=== PATIENT | female | born 1990 ===

== ENCOUNTER 2024-08-23 13:04 | Emergency (ER) | payer OTHER, SELFPAY ==
[2024-08-23 13:21] VITALS: BP 132/67
[2024-08-23 14:02] VITALS: BMI 21.3
--- NOTE | 2024-08-23 14:46 | ED.GENMED ---
History of Present Illness
<Kalyani Connors PA-C - Last Filed: 08/23/24 19:38>
General
Chief Complaint: Eye Problems
Source: patient
Exam Limitations: none
Time Seen by Provider: 08/23/24 14:35
Nursing documentation reviewed up to this point in time: agreed with
History of Present Illness
History of Present Illness:
Patient is a 34-year-old female presenting to the emergency department for evaluation of left eyelid swelling. Patient states that 2 days ago she woke up with very mild pain in her left eyelid however it appeared normal at that time. Yesterday she
noticed redness of the lid prompting a visit to urgent care. Patient was started on a course of Augmentin for presumed preseptal cellulitis. However�patient has since had 3 doses of antibiotic and felt swelling, redness, and pain were worse today.
She states that her eyelid was 'crusted shut' this morning. She came to the emergency department for further evaluation.
Patient denies any associated fever, chills, headache. She denies any changes in her vision. No blurry vision, double vision, loss of vision. Patient denies any pain with movement of her eye. Patient denies any recent viral illnesses.
Past History
<Kalyani Connors PA-C - Last Filed: 08/23/24 19:38>
Past History
ED Past Medical History: Psychiatric and Other (IBS)
ED Past Surgical History: Other
Social History
Alcohol: None
Drug: None
Personal: Single
Living: with family
Employment: Student
Family History
Family History: Other
Review of Systems
<Kalyani Connors PA-C - Last Filed: 08/23/24 19:38>
Review of Systems
Allergies reviewed?: Yes
All Other Systems: ROS reviewed and negative except as documented in HPI and ROS
Phy Exam
<Kalyani Connors PA-C - Last Filed: 08/23/24 19:38>
Physical Exam
Physical Exam:
Vitals: Patient's vital signs are stable. Afebrile
General: Patient is well appearing, no acute distress. Nontoxic appearing
Skin: Warm and dry, no rashes or lesions
Head: Normocephalic, atraumatic
Eyes: Erythema and edema of left upper lid. No scleral injection bilaterally. No drainage. EOMs intact. Pupils equal round and reactive to light bilaterally no nystagmus.
Throat: Uvula midline. Protecting airway
Neck: Normal ROM, no cervical spine tenderness, no meningismus
Cardiac: Regular rate and rhythm, no murmurs.
Pulm: Normal respiratory effort, no wheezes, rales, rhonchi heard on exam.
Abdomen: No abdominal tenderness.
Extremities: No evidence of cyanosis or edema
Neuro: AAOx3. Grossly intact.
Psychiatric: Normal affect.
Course
<Kalyani Connors PA-C - Last Filed: 08/23/24 19:38>
Vital Signs
Initial and Last Documented VS:
Initial Vital Signs
Temp Pulse Resp BP Pulse Ox
98.2 F 91 18 132/67 100
08/23/24 13:21 08/23/24 13:21 08/23/24 13:21 08/23/24 13:21 08/23/24 13:21
Last Documented Vital Signs
Temp Pulse Resp BP Pulse Ox
98.2 F 91 18 132/67 100
08/23/24 13:21 08/23/24 13:21 08/23/24 13:21 08/23/24 13:21 08/23/24 13:21
<Eladia Herr MD - Last Filed: 08/23/24 15:32>
Vital Signs
Initial and Last Documented VS:
Initial Vital Signs
Temp Pulse Resp BP Pulse Ox
98.2 F 91 18 132/67 100
08/23/24 13:21 08/23/24 13:21 08/23/24 13:21 08/23/24 13:21 08/23/24 13:21
Last Documented Vital Signs
Temp Pulse Resp BP Pulse Ox
98.2 F 91 18 132/67 100
08/23/24 13:21 08/23/24 13:21 08/23/24 13:21 08/23/24 13:21 08/23/24 13:21
<Kalyani Connors PA-C - Last Filed: 08/23/24 19:38>
MDM/Problems Addressed
Differential Diagnosis Includes:
Not limited to: Preseptal cellulitis, orbital cellulitis, eyelid dermatitis, blepharitis, hordeolum, etc.
MDM/Problems Addressed:
34-year-old female presenting with persistent left upper eyelid swelling despite 24 hours of antibiotic therapy for suspected preseptal cellulitis. No fevers, chills, headache, ocular pain, or changes in vision. Patient is stable vital signs and
is afebrile on arrival. Physical exam as above. There is some erythema and edema localized to left upper eyelid. No visible stye or break to skin. Left sclera clear with no injection. No ocular discharge. No pain with extraocular movements.
Otherwise exam unremarkable. No evidence of orbital cellulitis. No indication for orbital CT at this time. No evidence of systemic infection. While there is still erythema and edema of left upper eyelid -it has only been 24 hours. Patient is on
appropriate antibiotic therapy, Augmentin. Will advise patient to complete this course. Will provide patient with prescription for Bactrim, as well to cover for MRSA if remain without any improvement after a full 48 hours on Augmentin. Advised
continued warm compresses. Very strict return precautions discussed. Patient stable for discharge home. Case seen with attending physician
Chronic conditions affecting care:
N/A
Acute Exacerbation and/or Progression of Chronic Illness:
N/A
<Kalyani Connors PA-C - Last Filed: 08/23/24 19:38>
*Pulse Oximetry
Patient hypoxic: no
*EKG
Interpreted by ED Provider?: NA
*Psych Rn Interpretation
Rate: Psych Rn- N/A
*Critical Care Note
Total Time (30-74mins, 75-104mins- exclusive of procedures): Not Applicable
ED Attending Note
<Kalyani Connors PA-C - Last Filed: 08/23/24 19:38>
-
Portions of this chart may have been created with voice recognition software.� Occasional wrong word or��sound alike� substitutions may have occurred due to the inherent limitations of voice recognition software.
<Eladia Herr MD - Last Filed: 08/23/24 15:32>
ED Attending Note
Patient seen and examined by attending physician: Yes
I performed the substantive portion of visit, reviewed & personally made and approve the management plan that is documented in note by myself or EDY.: Yes
ED Attending Note:
34-year-old female who does not wear glasses or contacts with complaints of left eyelid swelling for the last 2 to 3 days. She notices discharge as well. Went to an urgent care has taken 3 doses of Augmentin without improvement, and questionably
getting slightly worse. She is intermittently doing warm compresses. She denies fever, chills, headache, change in vision, foreign body sensation, double vision, pain with extraocular movements, or other abnormalities. She denies trauma. On
exam, there is mild redness and swelling noted of the left upper eyelid without extension inferiorly or laterally, no fluctuance, no obvious abscess or stye, EOMI intact, no photophobia. Patient instructed continue Augmentin, close follow-up,
discussed with her signs and symptoms of septal cellulitis, continue warm compresses 4 times a day and will add Bactrim if no improvement with a full 48 hours of Augmentin treatment.
Discharge Plan
Departure
Patient Disposition: Home (Routine Discharge)
Date of Disposition: 08/23/24
Time of Disposition: 15:30
Patient with high blood pressure during this ER visit?: No
Condition: Good
Covid-19: Not Applicable
Discharge Problem:
Preseptal cellulitis of left eye
Instructions: Preseptal Cellulitis ED
Prescriptions:
New
sulfamethoxazole-trimethoprim 800-160 mg tablet
1 tab PO BID 7 Days Qty: 14 0RF
fluconazole 150 mg tablet
150 mg PO Q3D Qty: 3 0RF
Referrals:
Tracee Perry PA [Family Provider] -
Activity Restrictions/Additional Instructions:
RETURN TO THE EMERGENCY DEPARTMENT WITH ANY FEVER, CHILLS, SEVERE HEADACHE, WORSENING IN SWELLING/REDNESS OF LEFT EYELID, PAIN IN EYE, CHANGES IN VISION, OR ANY OTHER CONCERNS
-As discussed that you should complete the course of Augmentin as prescribed. A prescription for Bactrim has been sent to your pharmacy that you can start if you see no improvement after a full 48 hours on the Augmentin.
-You should continue to apply warm compresses to the affected eye frequently throughout the day.
-Follow-up with your primary care for further evaluation/management to ensure that symptoms are improving
Monitor symptoms closely and return to the emergency department with any acute worsening/new symptoms or any other concerns
Interventions
Interventions:
*Risk Screen - Suicide Last Done: 08/23/24 13:21
*General Assessment Last Done: 08/23/24 13:21
*Neglect/Abuse Screening Last Done: 08/23/24 14:02
ED- Fall Risk Assessment Last Done: 08/23/24 14:04
*ED COVID-19 Vaccine History Last Done: 08/23/24 13:21
*Nursing Disposition Last Done: 08/23/24 15:37
Discharge Date and Time
Discharge Date/Time: 08/23/24 15:38
Print Language: GERMAN
== END 2024-08-23 15:38 | disposition home or self-care (01) ==
LOC: EMR 13:04
PROVIDERS: EMERGENCY PHYSICIAN Emergency Medicine; FAMILY PHYSICIAN Nurse Practitioner Adult Health
DX: L03.213 Periorbital cellulitis (principal)
CPT/HCPCS: 99283